=== PATIENT | male | born 1975 | race Two or more races ===

== ENCOUNTER 2017-10-22 15:45 | Emergency (ER) | payer OTHER ==
[~2017-10-22] VITALS: Ht 175.3 cm; Wt 107.0 kg
[2017-10-22] MEDS ORDERED: PENICILLIN V P500 MG (15:57)
[2017-10-22] MEDS ORDERED: PANADOL EXTRA500 MG (15:57)
== END 2017-10-22 18:27 | disposition home or self-care (01) ==
LOC: ER 15:45
DX: J03.90 Acute tonsillitis, unspecified (principal); J02.0 Streptococcal pharyngitis